=== PATIENT | female | born 1935 | race Caucasian/White ===

== ENCOUNTER 2017-01-21 06:17 | Day surgery (SDC) | payer MEDICARE, OTHER ==
[~2017-01-21 06:17] MED LIST: AMIT10 PO; ASPERCREME101 EX; B-50 COMPLEX OR; BEN25 PO; CALCIUM PO; CLARIT10 PO; FLONASE0.05 %; JUICE PLUS PO; MICRO-K10 MEQ PO; MULTIPLE VIT PO; REPLENEX PO; SPIRO25 PO; VITAMIN B-121000 MC1 SL; VITAMIN B-625 MG PO; VITAMIN D31000 UNIT PO; VITC500 PO; ZADITOR OPH; [UNRECOGNIZED DRUG - OTHER] TOP
== END 2017-01-21 13:56 | disposition home or self-care (01) ==
LOC: SDC 06:17
PROVIDERS: Ophthalmology
PROC: 08RJ3JZ Replacement of Right Lens with Synthetic Substitute, Percutaneous Approach (ICD-10-PCS; principal; 2017-01-21 09:15)
DX: H25.11 Age-related nuclear cataract, right eye (principal); E11.9 Type 2 diabetes mellitus without complications; I10 Essential (primary) hypertension; Z90.49 Acquired absence of other specified parts of digestive tract; Z98.890 Other specified postprocedural states
CPT/HCPCS: 80048; 82962; 85014; 85018; 93005; J2405; J3010